=== PATIENT | male | born 1950 | race Caucasian/White ===

== ENCOUNTER 2019-07-23 09:04 | Day surgery (SDC) | payer MEDICARE, BC, OTHER ==
[~2019-07-23] VITALS: Ht 182.9 cm; Wt 80.1 kg
[2019-07-23] VITALS (9 sets, daily range): BP systolic 116–160; BP diastolic 76–114
[2019-07-23] MEDS ORDERED: APIX5TAB3 PO (09:52)
[2019-07-23] MEDS ORDERED: PANT-47 PO (09:52)
[2019-07-23] MEDS ORDERED: LISI10TA4 PO (09:52)
[2019-07-23] MEDS ORDERED: FLO0.4C PO (09:52)
[2019-07-23] MEDS ORDERED: DOFE125C PO (09:52)
[2019-07-23] MEDS ORDERED: fentaNYL/PF 50MCG/1 ML 2ML syringe IV ONE (10:00)
[2019-07-23] MEDS ORDERED: MIDAZolam 5mg/ml 2ml vial IV ONE (10:00)
[2019-07-23] MEDS ORDERED: normal saline 1,000 ML IV SCH (10:10)
[2019-07-23 10:56] LABS: BASOPHILS % (AUTO) 0.4 % (0-1); EOSINOPHILS # (AUTO) 0.1 X10'3 (0-0.9); EOSINOPHILS % (AUTO) 1.5 % (0-6); HEMATOCRIT 40.4 % (42.0-52.0); HEMOGLOBIN 13.9 g/dl (14.0-17.9); LYMPHOCYTES # (AUTO) 0.6 X10'3 (1.1-4.8); LYMPHOCYTES % (AUTO) 7.7 % (21-51); MEAN CORPUSCULAR HEMOGLOBIN 30.9 PG (27.0-31.0); MEAN CORPUSCULAR HGB CONC 34.4 g/dL (33.0-36.5); MEAN CORPUSCULAR VOLUME 89.8 FL (78-98); MEAN PLATELET VOLUME 7.7 FL (7.4-10.4); MONOCYTES # (AUTO) 0.5 X10'3 (0-0.9); MONOCYTES % (AUTO) 6.9 % (2-12); NEUTROPHILS # (AUTO) 6.2 X10'3 (1.8-7.7); NEUTROPHILS % (AUTO) 83.5 % (42-75); PLATELET COUNT 219 X10'3 (140-440); RED BLOOD COUNT 4.49 X10'6 (4.70-6.10); RED CELL DISTRIBUTION WIDTH 13.9 % (11.5-14.5); WHITE BLOOD COUNT 7.4 X10'3 (4.5-11.0)
[2019-07-23 11:06] LABS: ALBUMIN 3.7 G/DL (3.4-5.0); ANION GAP 9 (8-16); BLOOD UREA NITROGEN 15 MG/DL (7-18); BUN/CREATININE RATIO 13.3 (5.4-32.0); CHLORIDE 101 MMOL/L (99-107); CREATININE 1.13 MG/DL (0.60-1.10); GLUCOSE 101 MG/DL (70-104); MAGNESIUM 2.5 MG/DL (1.5-2.4); SODIUM 137 MMOL/L (135-145); TOTAL CARBON DIOXIDE 27.5 MMOL/L (24-32); eGFR 64 ML/MIN
== END 2019-07-23 13:55 | disposition home or self-care (01) ==
LOC: SSTAY O 09:04
PROVIDERS: ATTEND Internal Medicine Cardiovascular Disease
DX: I48.0 Paroxysmal atrial fibrillation (principal); G47.30 Sleep apnea, unspecified; Z79.899 Other long term (current) drug therapy; Z98.890 Other specified postprocedural states; Z72.89 Other problems related to lifestyle; Z82.49 Family history of ischemic heart disease and other diseases of the circulatory system
CPT/HCPCS: 36415; 80048; 83735; 85025; 85610; 92960; 93005; J2250; J3010; J7030

== ENCOUNTER 2019-08-16 08:30 | Day surgery (SDC) | payer MEDICARE, BC, OTHER ==
[~2019-08-16] VITALS: Ht 188 cm; Wt 74.1 kg
[~2019-08-16 08:30] MED LIST: APIX5TAB3 PO; DOFE125C PO; FLO0.4C PO; LISI10TA4 PO; PANT-47 PO
[2019-08-16 08:46] VITALS: BP 140/98
[2019-08-16] MEDS ORDERED: normal saline 1000ml 1,000 ML IV PRN (08:50)
[2019-08-16] MEDS ORDERED: ENOX80SY7 SUBCUT (08:55)
[2019-08-16] MEDS ORDERED: HYDR-4353 PO (08:59)
[2019-08-16] MEDS ORDERED: METO-467 PO (09:04)
[2019-08-16 09:42] LABS: BASOPHILS % (AUTO) 0.3 % (0-1); EOSINOPHILS # (AUTO) 0.1 X10'3 (0-0.9); EOSINOPHILS % (AUTO) 1.3 % (0-6); HEMATOCRIT 39.8 % (42.0-52.0); HEMOGLOBIN 13.5 g/dl (14.0-17.9); LYMPHOCYTES # (AUTO) 0.4 X10'3 (1.1-4.8); LYMPHOCYTES % (AUTO) 4.5 % (21-51); MEAN CORPUSCULAR HEMOGLOBIN 30.3 PG (27.0-31.0); MEAN CORPUSCULAR VOLUME 89.3 FL (78-98); MEAN PLATELET VOLUME 7.7 FL (7.4-10.4); MONOCYTES # (AUTO) 0.7 X10'3 (0-0.9); MONOCYTES % (AUTO) 7.7 % (2-12); NEUTROPHILS # (AUTO) 7.8 X10'3 (1.8-7.7); NEUTROPHILS % (AUTO) 86.2 % (42-75); PLATELET COUNT 280 X10'3 (140-440); RED BLOOD COUNT 4.46 X10'6 (4.70-6.10); RED CELL DISTRIBUTION WIDTH 13.7 % (11.5-14.5); WHITE BLOOD COUNT 9.1 X10'3 (4.5-11.0)
[2019-08-16] MEDS ORDERED: heparin sodium, porcine/PF 100unit/ml 5ML syringe ICATH ONE (10:20)
[2019-08-16] MEDS ORDERED: fentaNYL/PF 50MCG/1 ML 2ML syringe IV PRN (10:20)
[2019-08-16] MEDS ORDERED: midazolam 2 mg/2 ml injection IV PRN (10:20)
[2019-08-16] MEDS ORDERED: LIDOcaine 1% 30ml preserv. free vial SQ ONE (10:20)
[2019-08-16] MEDS ORDERED: heparin sodium, porcine/PF 100unit/ml 5ML syringe ONE (10:32)
[2019-08-16] MEDS ORDERED: midazolam 2 mg/2 ml injection ONE (10:33)
[2019-08-16] MEDS ORDERED: fentaNYL/PF 50MCG/1 ML 2ML syringe ONE (10:33)
[2019-08-16] MEDS ORDERED: LIDOcaine 1%/PF 5ML 10 MG/ML VIAL ONE (10:33)
[2019-08-16 11:26] VITALS: BP 117/85
[2019-08-16 11:30] VITALS: BP 112/93
[2019-08-16 11:45] VITALS: BP 137/60
[2019-08-16 12:00] VITALS: BP 94/45
[2019-08-16 12:15] VITALS: BP 119/85
== END 2019-08-16 12:30 | disposition home or self-care (01) ==
LOC: SSTAY O 08:30
PROVIDERS: ATTEND Radiology Vascular & Interventional Radiology
DX: C25.1 Malignant neoplasm of body of pancreas (principal); I48.91 Unspecified atrial fibrillation; I10 Essential (primary) hypertension; N40.0 Benign prostatic hyperplasia without lower urinary tract symptoms; J45.909 Unspecified asthma, uncomplicated; Z98.890 Other specified postprocedural states; Z79.899 Other long term (current) drug therapy; Z72.89 Other problems related to lifestyle
CPT/HCPCS: 36415; 36561; 76937; 77001; 85025; 99152; 99153; C1769; C1788; C1894; J1642; J2250; J3010; J7030; A6213